=== PATIENT | male | born 1960 | race Asian ===

== ENCOUNTER 2017-12-09 09:01 | Emergency (ER) | payer BC ==
[~2017-12-09] VITALS: Ht 165.1 cm; Wt 73.0 kg
[2017-12-09 10:28] VITALS: BP 173/102
[2017-12-09] MEDS ORDERED: BACITRACIN ZINC OINT UDPKT TOP ONE (12:15)
[2017-12-09] MEDS ORDERED: LIDOCAINE HCL/PF 1% 10 MG/ML 5ML VIAL IJ ONE (12:15)
== END 2017-12-09 13:10 | disposition home or self-care (01) ==
LOC: ER 09:01
DX: S01.81XA Laceration without foreign body of other part of head, initial encounter (principal); W22.8XXA Striking against or struck by other objects, initial encounter; Y93.89 Activity, other specified; Y92.89 Other specified places as the place of occurrence of the external cause; Y99.0 Civilian activity done for income or pay; I10 Essential (primary) hypertension
CPT/HCPCS: 12002; 99283; Z7610